=== PATIENT | female | born 2000 | race Caucasian/White ===

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

== ENCOUNTER 2022-08-04 11:29 | Emergency (ER) | payer BC, SELFPAY ==
[2022-08-04 13:15] VITALS: BP 123/86; PULSE 101; RESP 19; TEMP 36.8; O2SAT 98; BMI 45.1
--- NOTE | 2022-08-04 14:13 | EXP.UTC ---
Discharge Plan Disposition Patient Disposition: Home, Self-Care Condition: Good Prescriptions Prescriptions: New amoxicillin 875 mg tablet 875 mg PO BID 10 Days Qty: 20 0RF fluticasone propionate [Flonase Allergy Relief] 50 mcg/actuation spray,suspension 1 spray intranasal DAILY Qty: 16 0RF Rx Instructions: administer into each nostril methylprednisolone [Medrol (Marek)] 4 mg tablets,dose pack See Rx Instructions .Route .COMPLEX 6 Days Qty: 21 0RF Rx Instructions: taper pack; Referrals Follow up/Referrals: Kaila Hanley [Primary Care Provider] - See instructions Activity Restrictions/Add. Instructions Additional Instructions/Restrictions: *Monitor Temp, Over the counter Motrin or Tylenol as directed/as needed Tylenol every 4 hours and Motrin every 6 hours (as long as your family doctor has told you that you can take it) for fever or pain. and straight to ER if unable to lower temp less than 101.0 after medication given Take medication as prescribed *Sleep elevated *Humidifier/Vaporizer *Flonase 2 sprays in each nostril daily but be aware that it may take 2-3 days before you notice improvement Follow up IMMEDIATELY for new or worsening symptoms or no Noticeable improvement over the next 48-72 hours. 911 for difficulty breathing or swallowing Clinical Impressions Clinical Impression: Otitis media Instructions Patient Instructions: Middle Ear Infection, Amoxicillin Discharge ED Provider: Clementine Jenkins [facility] General Stated complaint: RT ear pain, cough Mode of Arrival: Ambulatory Source of Information: Patient Limitations: No Limitations Time Seen by Provider: 08/04/22 14:13 Description of Symptoms (Recalled from Triage Doc. by RN): PATIENT C/O RIGHT EAR PAIN/FULLNESS X 4 DAYS, COUGH X 10 DAYS HEENT Symptoms (Recalled from RN notes): Yes Resp Symptoms (Recalled from RN notes): Yes Skin Symptoms (Recalled from RN notes): No MS Symptoms (Recalled from RN notes): No Functional Status (Recalled from RN notes): WNL History of Present Illness Provider Complaint: Patient states that she has had cough for about 10 days and for the last 4 days she has been having pain and pressure in her right ear and feels like it is full States that today it was worse so she came in to get it checked Related Data Previous Rx's Medication Instructions Recorded amoxicillin 875 mg tablet 875 mg PO BID 10 days #20 tabs 08/04/22 fluticasone propionate 50 1 spray intranasal DAILY #16 grams 08/04/22 mcg/actuation nasal spray,suspension (Flonase Allergy Relief) methylprednisolone 4 mg tablets in See Rx Instructions .Route 08/04/22 a dose pack (Medrol (Marek)) .COMPLEX 6 days #21 tabs Allergies Allergy/AdvReac Type Severity Reaction Status Date / Time No Known Allergies Allergy Verified 07/10/20 09:05 Worker's Comp Is this a Worker's Comp case?: No [facility] Disclaimer: The information contained in this section may have been updated after the patient was seen, as this information can be updated by other users. 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 (Updated 08/04/22 @ 14:22 by Clementine Jenkins APRN) History of anemia Social History (Updated 08/04/22 @ 13:33 by Zaynab Pendleton RN) Smoking Status: Never smoker alcohol intake: never current occupational status: unemployed and student Travel in the last 8 weeks: None ROS Obtained: Yes All systems reviewed & no additional complaints except as documented and Yes Systems reviewed as appropriate & no additional complaints except as documented Constitutional Constitutional: Reports system reviewed and no additional complaints, except as documented and Reports as per HPI ENT Ears, Nose, Mouth, and Throat: Reports system reviewed and no additional complaints, except as documented, Reports as per HPI and Reports otalgia Cardiovascular Cardiovascular: Reports system reviewed and no additional complaints, except as documented and Reports as per HPI
[2022-08-04 14:24] VITALS: BP 123/86; PULSE 101; RESP 19; TEMP 36.8; O2SAT 98
== END 2022-08-04 14:25 | disposition home or self-care (01) ==
PROVIDERS: Emergency Provider Nurse Practitioner; PCP Family Medicine
DX: H66.90 Otitis media, unspecified, unspecified ear (principal)
CPT/HCPCS: 99212; G0463

== ENCOUNTER → 2023-03-11 16:40 | Outpatient (CLI) | payer BC, SELFPAY | PROVIDERS: Visit Provider Nurse Practitioner Family | DX: S91.101A Unspecified open wound of right great toe without damage to nail, initial encounter (principal); T14.8XXA Other injury of unspecified body region, initial encounter; B96.89 Other specified bacterial agents as the cause of diseases classified elsewhere | CPT/HCPCS: 87070; 87077; 87186; 87205 ==

== ENCOUNTER 2023-04-29 18:10 | Emergency (ER) | payer BC, SELFPAY ==
[2023-04-29 18:50] VITALS: BP 148/77; PULSE 91; RESP 18; TEMP 37.7; O2SAT 97; BMI 43.1
[2023-04-29 18:53] LABS: UTC Influenza A Antigen Positive (Negative); UTC Influenza B Antigen Positive (Negative)
--- NOTE | 2023-04-29 19:09 | EXP.UTC ---
Discharge Plan Disposition Patient Disposition: Home, Self-Care Condition: Good Prescriptions Prescriptions: No Action mupirocin [Centany] 2 % ointment 1 applic topical BID 14 Days Qty: 22 0RF Referrals Follow up/Referrals: Kaila Hanley [Primary Care Provider] - See instructions Activity Restrictions/Add. Instructions Additional Instructions/Restrictions: No sign of a bacterial infection. Likely viral. Viruses can take 7-14 days to run their course. Nasal saline and bulb syringe or nose Alee to remove nasal drainage to help with nasal congestion. Hard to eat, drink, sleep with nasal congestion so important to keep this cleaned out. Monitor temp. Tylenol or Motrin as needed for pain or fever Encourage fluids, water, Gatorade, Powerade, Pedialyte if infant/toddler/child Warm salt water gargles Warm fluids Sore throat lozenges Sleep elevated Humidifier/vaporizer Follow-up immediately for new or worsening symptoms or no noticeable improvement over the next 48-72 hours. Clinical Impressions Clinical Impression: Flu Instructions Patient Instructions: DI for Influenza -- Adult Discharge ED Provider: Fidelia ([facility])[place] [facility] [place] General Stated complaint: sore throat, cough, runny nose, bilateral ear pain Mode of Arrival: Ambulatory Source of Information: Patient Limitations: No Limitations Time Seen by Provider: 04/29/23 19:09 Description of Symptoms (Recalled from Triage Doc. by RN): cough, stuffy nose, runny nose, bilateral ear pain HEENT Symptoms (Recalled from RN notes): Yes Resp Symptoms (Recalled from RN notes): No Skin Symptoms (Recalled from RN notes): No MS Symptoms (Recalled from RN notes): No Functional Status (Recalled from RN notes): n/a History of Present Illness Provider Complaint: 23 yr old female presents for cough, stuffy nose, runny nose, bilateral ear pain, exposed to flu, symptoms for about 3 weeks Related Data Previous Rx's Medication Instructions Recorded mupirocin 2 % topical ointment 1 applic topical BID b/l great 02/24/23 (Centany) toes wounds 14 days #22 grams Allergies Allergy/AdvReac Type Severity Reaction Status Date / Time No Known Allergies Allergy Verified 04/29/23 19:04 Worker's Comp Is this a Worker's Comp case?: No [facility] Disclaimer: The information contained in this section may have been updated after the patient was seen, as this information can be updated by other users. 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) Smoking Status: Never smoker alcohol intake: never current occupational status: unemployed and student Travel in the last 8 weeks: None ROS Obtained: Yes All systems reviewed & no additional complaints except as documented Constitutional Constitutional: Reports system reviewed and no additional complaints, except as documented and Reports as per HPI Eyes Eyes: Reports system reviewed and no additional complaints, except as documented ENT Ears, Nose, Mouth, and Throat: Reports system reviewed and no additional complaints, except as documented, Reports as per HPI, Reports nasal congestion, Reports nasal discharge, Reports post nasal drip, Reports sinus pain, Reports sinus pressure and Reports sore throat Cardiovascular Cardiovascular: Reports system reviewed and no additional complaints, except as documented Respiratory Respiratory: Reports system reviewed and no additional complaints, except as documented Gastrointestinal Gastrointestingal: Reports system reviewed and no additional complaints, except as documented Musculoskeletal Musculoskeletal: Reports system reviewed and no additional complaints, except as documented Integumentary/Breasts Skin/Breast: Reports system reviewed and no additional complaints, except as documented Neurologic Neurologic: Reports system reviewed and no additio
[2023-04-29 19:31] VITALS: BP 148/77; PULSE 91; RESP 18; TEMP 37.7; O2SAT 97
== END 2023-04-29 19:30 | disposition home or self-care (01) ==
PROVIDERS: Emergency Provider Nurse Practitioner Family; PCP Family Medicine
DX: J10.1 Influenza due to other identified influenza virus with other respiratory manifestations (principal); R50.9 Fever, unspecified
CPT/HCPCS: 87804; 99212; 99214; G0463

== ENCOUNTER → 2023-09-01 10:22 | Outpatient (REF) | payer SELFPAY | LOC: UTC.OUT 10:22 | PROVIDERS: Visit Provider Nurse Practitioner | DX: Z02.1 Encounter for pre-employment examination (principal) ==

== ENCOUNTER 2023-10-07 18:30 | Emergency (ER) | payer SELFPAY ==
[2023-10-07 18:53] VITALS: BP 128/94; PULSE 93; RESP 18; TEMP 36.6; O2SAT 99; BMI 47.5
--- NOTE | 2023-10-07 18:59 | [facility].EDGENADL ---
Discharge Plan Disposition Patient Disposition: Home, Self-Care Condition: Good Prescriptions Prescriptions: No Action mupirocin [Centany] 2 % ointment 1 applic topical BID 14 Days Qty: 22 0RF Referrals Follow up/Referrals: Kaila Hanley [Primary Care Provider] - See instructions Activity Restrictions/Add. Instructions Additional Instructions/Restrictions: You were evaluated in the emergency department today. Use the antibiotic drops provided to you 4 times a day for the next 4 days. Use your glasses for the time being. Follow-up outpatient with an eye doctor for reassessment. Return to the emergency department for new or worsening symptoms. Clinical Impressions Clinical Impression: Corneal injury of right eye Stand Alone Forms Stand Alone Forms: Work/School Release Instructions Patient Instructions: DI for Chemical Eye Burn, DI for Eye Pain Discharge ED Provider: Keyla Loera General Adult HPI General Chief complaint: Eye Problems Stated complaint: WC 10/06@1000 hot oil splash in RT eye Time Seen by Provider: 10/07/23 18:44 Mode of Arrival: Ambulatory Source of Information: Patient Limitations: No Limitations Description of Symptoms (Recalled from ER Triage Doc. by RN): pt states around 1000 she was cooking when hot oil popped into her R eye. pt states her R eye is tender, but that its not necessarily painful. pt states she was having minimal blurred vision but it is better. History of Present Illness HPI narrative: This patient is a 23-year-old female presenting to the emergency department for evaluation with concern for right eye injury. Around 10:00 this morning, she was cooking in the cafeteria when HydroVal splashed into her right eye. She states she has had some right eye pain since then. She notes that she was wearing contacts when this happened, and she took her contact out and thought that there was a brown spot on it. She noted that the whole contact came out intact. She notes that her vision seems a little bit blurry since then, but otherwise no significant concerns. She is unsure when her last tetanus shot was. Related Data Previous Rx's Medication Instructions Recorded mupirocin 2 % topical ointment 1 applic topical BID b/l great 02/24/23 (Centany) toes wounds 14 days #22 grams Allergies Allergy/AdvReac Type Severity Reaction Status Date / Time No Known Allergies Allergy Verified 04/29/23 19:04 [facility] Disclaimer: The information contained in this section may have been updated after the patient was seen, as this information can be updated by other users. 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 and student Travel in the last 8 weeks: None ROS Obtained: Yes All systems reviewed & no additional complaints except as documented Physical Exam General General appearance: alert and in no apparent distress Head Head exam: atraumatic and normocephalic Eye Eye exam: Present normal appearance, PERRL and EOMI ENT ENT exam: Present normal exam, normal oropharynx, mucous membranes moist and normal external ear exam Neck Neck exam: Present normal inspection, full ROM and trachea midline; Absent tenderness Chest Chest inspection: Present normal inspection and symmetric chest wall rise; Absent tenderness Respiratory Respiratory exam: Present normal lung sounds bilaterally; Absent respiratory distress, wheezes, stridor or accessory muscle use Cardiovascular Cardiovascular exam: Present regular rate and normal rhythm Abdominal Exam Abdominal exam: Present soft; Absent distention, tenderness or guarding Extremities Exam Extremities exam: Present normal inspection, full ROM and normal capillary refill; Absent tenderness or edema Back Exam Back exam: Present normal inspection and full ROM; Absent tenderness Neurological Exam Neurological exam: Present alert, oriented X3, CN II-XII intact and normal gait; Absent motor sensory deficit Psychiatric Psychiatric exam: Present normal affect and normal mood Skin Skin exam: Present warm and dry Medical Decision Making Medical Records Medical records reviewed: Yes I reviewed the patient's medical records. Yann Inquiry Pt receiving controlled substance: No Vital Signs: 10/07/23 18:53 10/07/23 20:33 Temperature 98 F 98 F Temperature Source Oral Oral Pulse Rate 88 Pulse Rate [Left] 93 H Respiratory Rate 18 18 Blood Pressure 126/82 Blood Pressure [Right Arm] 128/94 H Blood Pressure Mean [Right Arm] 105 Blood Pressure Source Automatic Cuff Blood Pressure Source [Right Arm] Automatic Cuff Blood Pressure Position Sitting Blood Pressure Position [Right Arm] Sitting 02 Sat by Pulse Oximetry 99 Oxygen Delivery Method Room Air Lab Data Lab results reviewed: Yes I reviewed the patient's lab results. Orders (Tests/Meds): ED MEDICATIONS Discontinued Medications Generic Name Dose Route Start Last Admin Trade Name Freq PRN Reason Stop Dose Admin Fluorescein Sodium 1 mg 10/07/23 19:57 10/07/23 20:09 Fluorescein Sodium 1mg Strip OP 10/07/23 19:58 1 mg ONCE ONE Administration Gentamicin Sulfate 1 ml 10/07/23 19:57 10/07/23 20:09 Gentamicin 0.3% Opth Myrna 5ml OP 10/07/23 19:58 1 ml ONCE ONE Administration Tetanus/Reduced Diphtheria/Acell Pertussis 0.5 ml 10/07/23 18:45 10/07/23 19:57 Tet/Diphth/Pert-Adult 0.5ml Syringe IM 10/07/23 18:46 0.5 ml .ONCE ONE Administration Tetracaine HCl 0 ml 10/07/23 19:57 10/07/23 20:09 Tetracaine 0.5% Opth Myrna 15ml OP 10/07/23 19:58 15 ml ONCE ONE Administration Medical Decision Narrative: In summary, this patient is a 23-year-old female presenting to the Emergency Department for evaluation of R eye injury while at work. Differential diagnoses considered include but are not limited to caustic injury, corneal ulceration, corneal abrasion, thermal injury. Ruling out the most morbid conditions drove assessment. On exam, the patient has a very tiny amount of fluorescein uptake on the inferior sclera of the right eye without other acute concerns based on ocular exam. Eye exam is otherwise reassuring with no conjunctival injection, erythema, significant tearing, or other concerns. Pupils are equal and reactive with extraocular movements intact. Patient was given Tdap booster. I considered irrigation, however given that the injury had happened approximately 9 hours ago, I do not feel that irrigation will be beneficial. Patient was given gentamicin drops given that she is a contact lens wear to prevent secondary infection at this potential thermal injury. She was given instructions to follow-up closely with an eye doctor. She was given strict return precautions and she was discharged in stable condition after all questions were answered. Critical Care Critical Care Time Critical Care Time: No
[2023-10-07] MEDS: TET/DIPHTH/PERT-ADULT 0.5ML SYRINGE 0.5 ML IM (19:57)
[2023-10-07] MEDS: TETRACAINE 0.5% OPTH SOL 15ML OP (20:09)
[2023-10-07] MEDS: FLUORESCEIN SODIUM 1MG STRIP 1 MG OP (20:09)
[2023-10-07] MEDS: GENTAMICIN 0.3% OPTH SOL 5ML 1 ML OP (20:09)
[2023-10-07 20:33] VITALS: BP 126/82; PULSE 88; RESP 18; TEMP 36.6; O2SAT 99
== END 2023-10-07 20:34 | disposition home or self-care (01) ==
PROVIDERS: Emergency Provider Emergency Medicine; PCP Family Medicine
DX: S05.8X1A Other injuries of right eye and orbit, initial encounter (principal); X10.2XXA Contact with fats and cooking oils, initial encounter; Z23 Encounter for immunization
CPT/HCPCS: 90471; 90715; 99283